=== PATIENT | female | born 1995 | race Caucasian/White ===

== ENCOUNTER 2017-04-07 09:17 | Emergency (ER) | payer MEDICAID, OTHER ==
[~2017-04-07] VITALS: Ht 160 cm; Wt 49.9 kg
[2017-04-07 10:14] LABS: *BILIRUBIN,URIN NEGATIVE (NEGATIVE); *BLOOD, URINE 3+ (NEGATIVE); *CLARITY,URINE SLIGHTLY CLOUDY (CLEAR); *COLOR,URINE YELLOW (YELLOW); *KETONES,URINE NEGATIVE (NEGATIVE); *PROTEIN,URINE TRACE (NEGATIVE); *UROBILINOGEN,URINE 0.2 E.U./dl (NORMAL); LEUKOCYTE ESTERASE ,URINE NEGATIVE (NEGATIVE); NITRITE, URINE NEGATIVE (NEGATIVE); UGLUCOSE NEGATIVE (NEGATIVE)
[2017-04-07 10:17] LABS: *URINE HCG, QUAL NEGATIVE (NEGATIVE)
[2017-04-07 10:31] LABS: BACTERIA,URINE FEW /HPF (NONE SEEN); MUCUS,URINE MODERATE /LPF (0-FEW); RBC,URINE 50-80 /HPF (0-3); SQUAMOUS EPITHELIAL CELL,UR MANY /HPF (NONE SEEN); WBC,URINE 0-3 /HPF (0-3)
--- NOTE | 2017-04-07 11:02 | NUR ---
assissted md with pelvic exam. pt tolerated well.
--- NOTE | 2017-04-07 11:47 | NUR ---
Patient discharged to home in stable conditon. Written and verbal after care instructions given. Patient verbalizes understanding of instructions. Stressed follow up with pmd/obgyn or return to ER for worsening s/s.
== END 2017-04-07 11:50 | disposition home or self-care (01) ==
LOC: ER 09:17
DX: N92.1 Excessive and frequent menstruation with irregular cycle (principal); N83.202 Unspecified ovarian cyst, left side; Z88.0 Allergy status to penicillin; Z88.2 Allergy status to sulfonamides
CPT/HCPCS: 76856; 81001; 84703; 99285; A4663

== ENCOUNTER 2020-08-31 15:42 | Inpatient (IN) | payer MEDICAID, OTHER ==
[~2020-08-31] VITALS: Ht 160 cm; Wt 49.9 kg
[2020-08-31] MEDS ORDERED: LORA10TA7 PO (17:07)
[2020-08-31] MEDS ORDERED: levETIRAcetam IV 500 MG in IV DEXTROSE 5% 100 ML IV ONE (17:15)
[2020-08-31 17:31] LABS: BASOPHILS # (AUTO) 0.1 K/uL (0.0-8.0); BASOPHILS % (AUTO) 0.7 % (0.0-2.0); EOSINOPHILS % (AUTO) 0.1 % (0.0-7.0); HEMATOCRIT 41.1 % (31.2-41.9); HEMOGLOBIN 13.6 g/dL (10.9-14.3); LYMPHOCYTES # (AUTO) 1.6 K/uL (20.0-40.0); LYMPHOCYTES % (AUTO) 13.6 % (20.5-51.5); MEAN CORPUSCULAR HEMOGLOBIN 29.4 uug (24.7-32.8); MEAN CORPUSCULAR HGB CONC 33 g/dL (32.3-35.6); MEAN CORPUSCULAR VOLUME 88.9 fL (75.5-95.3); MONOCYTES # (AUTO) 0.8 K/uL (2.0-10.0); MONOCYTES % (AUTO) 6.5 % (0.0-11.0); NEUTROPHILS # (AUTO) 9.2 K/uL (1.8-8.9); NEUTROPHILS % (AUTO) 79.1 % (38.5-71.5); PLATELET COUNT (AUTO) 238 K/uL (179-408); RED BLOOD CELL COUNT(AUTO) 4.63 MIL/uL (3.63-4.92); WHITE BLOOD COUNT (AUTO) 11.6 K/uL (3.8-11.8)
[2020-08-31 17:42] LABS: BILIRUBIN,DIRECT 0.3 mg/dL (0.0-0.2); CREATININE 0.7 mg/dL (0.6-1.3); POTASSIUM 3.8 mmol/L (3.5-5.1); TOTAL PROTEIN, SERUM 7.8 g/dL (6.4-8.2)
[2020-08-31] MEDS ORDERED: HYDROCODONE/APAP 10-325 MG TABLET ONE (18:13)
[2020-08-31] MEDS ORDERED: HYDROCODONE/APAP 10-325 MG TABLET PO ONE (18:45)
[2020-08-31 21:00] VITALS: BP 109/64
[2020-08-31] MEDS ORDERED: MAGNESIUM HYDROXIDE 30 ML LIQUID UDC PO PRN (21:30)
[2020-08-31] MEDS ORDERED: ONDANSETRON 4 MG/2 ML VIAL IV PRN (21:30)
[2020-08-31] MEDS: HYDROCODONE/APAP 5-325MG TABLET PO PRN (23:02)
[2020-08-31 23:09] LABS: *CLARITY,URINE SLIGHTLY CLOUDY (CLEAR); *COLOR,URINE YELLOW (YELLOW); *KETONES,URINE 3+ (NEGATIVE); LEUKOCYTE ESTERASE ,URINE NEGATIVE (NEGATIVE); NITRITE, URINE NEGATIVE (NEGATIVE); PH,URINE 6.5 (5.0-8.0); UGLUCOSE NEGATIVE (NEGATIVE)
[2020-08-31 23:16] LABS: *BLOOD, URINE NEGATIVE (NEGATIVE)
[2020-08-31 23:17] LABS: *BILIRUBIN,URIN 1+ (NEGATIVE)
[2020-08-31 23:20] LABS: *URINE HCG, QUAL NEGATIVE (NEGATIVE); BACTERIA,URINE NONE SEEN /HPF (NONE SEEN); MUCUS,URINE MANY /LPF (0-FEW); RBC,URINE 0-3 /HPF (0-3); SQUAMOUS EPITHELIAL CELL,UR MANY /HPF (NONE SEEN); URINE AMORPHOUS URATE MODERATE /HPF; WBC,URINE 0-3 /HPF (0-3)
[2020-08-31 23:27] LABS: *AMPHETAMINE, URINE NEGATIVE (NEGATIVE); *CANNABINOID, URINE POSITIVE (NEGATIVE); *COCCAINE, URINE NEGATIVE (NEGATIVE); *OPIATE, URINE POSITIVE (NEGATIVE); *PHENCYCLIDINE SCREEN,URINE NEGATIVE (NEGATIVE)
[2020-09-01 00:04] VITALS: BP 110/61
[2020-09-01] MEDS ORDERED: ZOLPIDEM 5 MG TABLET PO PRN (00:15)
[2020-09-01] MEDS: ACETAMINOPHEN 325 MG TABLET PO PRN ×3 (00:19→13:42)
[2020-09-01 04:33] VITALS: BP 96/61
[2020-09-01 06:07] LABS: BASOPHILS % (AUTO) 0.4 % (0.0-2.0); EOSINOPHILS # (AUTO) 0.1 K/uL (0.0-0.7); EOSINOPHILS % (AUTO) 0.9 % (0.0-7.0); HEMATOCRIT 39.3 % (31.2-41.9); HEMOGLOBIN 13.1 g/dL (10.9-14.3); LYMPHOCYTES # (AUTO) 2.2 K/uL (20.0-40.0); LYMPHOCYTES % (AUTO) 25.6 % (20.5-51.5); MEAN CORPUSCULAR HGB CONC 33 g/dL (32.3-35.6); MONOCYTES # (AUTO) 0.9 K/uL (2.0-10.0); MONOCYTES % (AUTO) 10.8 % (0.0-11.0); NEUTROPHILS # (AUTO) 5.4 K/uL (1.8-8.9); NEUTROPHILS % (AUTO) 62.3 % (38.5-71.5); PLATELET COUNT (AUTO) 228 K/uL (179-408); RED BLOOD CELL COUNT(AUTO) 4.36 MIL/uL (3.63-4.92); WHITE BLOOD COUNT (AUTO) 8.7 K/uL (3.8-11.8)
[2020-09-01 06:24] LABS: CREATININE 0.6 mg/dL (0.6-1.3); MAGNESIUM 2.2 mg/dL (1.8-2.4); PHOSPHOROUS 3.8 mg/dL (2.5-4.9); POTASSIUM 3.6 mmol/L (3.5-5.1); TOTAL PROTEIN, SERUM 7.3 g/dL (6.4-8.2)
[2020-09-01] MEDS ORDERED: PANTOPRAZOLE SODIUM 40 MG TABLET.DR PO SCH (07:00)
[2020-09-01 08:00] VITALS: BP 92/59
[2020-09-01] MEDS ORDERED: levETIRAcetam 500 MG TABLET PO SCH (09:00)
[2020-09-01] MEDS: HYDROCODONE/APAP 5-325MG TABLET PO PRN (09:45)
[2020-09-01 12:00] VITALS: BP 104/62
[2020-09-01] MEDS ORDERED: HYDR-3972 PO (13:27)
== END 2020-09-01 15:10 | disposition home or self-care (01) | DRG 55 ==
LOC: ER 15:46 → TELE3 20:25
PROVIDERS: ADMIT Hospitalist; ATTEND Hospitalist
DX: S06.5X0A Traumatic subdural hemorrhage without loss of consciousness, initial encounter (principal); F12.90 Cannabis use, unspecified, uncomplicated; S20.229A Contusion of unspecified back wall of thorax, initial encounter; Y04.0XXA Assault by unarmed brawl or fight, initial encounter; Y92.89 Other specified places as the place of occurrence of the external cause; Z87.820 Personal history of traumatic brain injury; Z88.0 Allergy status to penicillin; Z88.2 Allergy status to sulfonamides; R40.2362 Coma scale, best motor response, obeys commands, at arrival to emergency department; R40.2142 Coma scale, eyes open, spontaneous, at arrival to emergency department; R40.2252 Coma scale, best verbal response, oriented, at arrival to emergency department; Z68.1 Body mass index [BMI] 19.9 or less, adult
CPT/HCPCS: 36415; 70450; 71045; 83735; 84100; 84703; 85025; 85730; A4663; G0378; J1953; J2405; J7060

== ENCOUNTER 2020-09-03 15:32 | Emergency (ER) | payer MEDICAID ==
[~2020-09-03] VITALS: Ht 160 cm; Wt 49.9 kg
[~2020-09-03 15:32] MED LIST: HYDR-3972 PO; LORA10TA7 PO
[2020-09-03 16:42] VITALS: BP 11/63
--- NOTE | 2020-09-03 16:42 | NUR ---
Patient discharged to home in stable condition. Written and verbal after care instructions given. Patient verbalizes understanding of instructions. Stressed follow up or return to ER for worsening s/s.pt walks in steady gait.
== END 2020-09-03 16:43 | disposition home or self-care (01) ==
LOC: ER 15:33
DX: S06.5X0D Traumatic subdural hemorrhage without loss of consciousness, subsequent encounter (principal); G44.309 Post-traumatic headache, unspecified, not intractable; F07.81 Postconcussional syndrome; X58.XXXD Exposure to other specified factors, subsequent encounter; Z87.820 Personal history of traumatic brain injury; Z88.0 Allergy status to penicillin; Z88.2 Allergy status to sulfonamides
CPT/HCPCS: 70450; A4663

== ENCOUNTER 2022-08-09 16:06 | Emergency (ER) | payer MEDICAID ==
[~2022-08-09] VITALS: Ht 160 cm; Wt 47.6 kg
--- NOTE | 2022-08-09 16:18 | NUR ---
[email or web address], medical screening exam in progress
[2022-08-09] MEDS ORDERED: TDAP DIPH,PERTUSS,TET VAC/PF 0.5 ML DISP.SYRIN IM ONE ×2 (16:26→16:30)
--- NOTE | 2022-08-09 18:12 | NUR ---
Patient is resting comfortably in bed with eyes closed, NAD.
--- NOTE | 2022-08-09 18:26 | NUR ---
Patient discharged to home by Dr Julian in stable condition with brisk steady gait. Written and verbal after care instructions given to patient and patient's mother. Patient and family verbalized understanding and compliance of instructions. Stressed follow up with primary doctor and neurologist or return to ER for worsening s/s.
[2022-08-09 18:27] VITALS: BP 121/76
== END 2022-08-09 18:28 | disposition home or self-care (01) ==
LOC: ER 16:07
DX: S00.01XA Abrasion of scalp, initial encounter (principal); R51.9 Headache, unspecified; F17.210 Nicotine dependence, cigarettes, uncomplicated; Z88.1 Allergy status to other antibiotic agents; Z88.8 Allergy status to other drugs, medicaments and biological substances; Z79.899 Other long term (current) drug therapy; W01.0XXA Fall on same level from slipping, tripping and stumbling without subsequent striking against object, initial encounter; Y93.89 Activity, other specified; Y92.89 Other specified places as the place of occurrence of the external cause; Y99.8 Other external cause status
CPT/HCPCS: 70450; 90715; A4663